=== PATIENT | male | born 1975 | race African-American/Black ===

== ENCOUNTER 2017-03-19 20:16 | Inpatient (IN) | payer MEDICAID ==
[~2017-03-19] VITALS: Ht 172.7 cm; Wt 75.8 kg
[2017-03-19 22:43] LABS: BASOPHIL % 0.3 % (0-2); PLATELET COUNT 223 x10^3mcL (130-400); RED CELL DISTRIBUTION WIDTH 13.4 % (11.5-14.5)
[2017-03-19 22:44] LABS: CALCIUM 9.2 mg/dL (8.5-10.1); CARBON DIOXIDE 29.2 mmol/L (21-32); CHLORIDE SERUM 103 mmol/L (98-107); CREATININE SERUM 1.3 mg/dL (0.7-1.3); GFR1 > 60 mL/min; GLUCOSE SERUM 88 mg/dL (74-106); SODIUM SERUM 138 mmol/L (136-145)
[2017-03-19 23:02] LABS: ALKALINE PHOSPHATASE 55 U/L (46-116); ALT/SGPT 66 U/L (16-63); AST/SGOT 40 U/L (15-37); BILIRUBIN TOTAL 0.34 mg/dL (0.20-1.00); LIPASE 133 IU/L (73-393); TOTAL PROTEIN, SERUM 7.5 g/dL (6.4-8.2)
[2017-03-20] MEDS ORDERED: HYDROCHLOROTHIA25 MG PO (00:29)
[2017-03-20] MEDS ORDERED: SIMVASTATIN20 M1 (00:30)
[2017-03-20 00:56] VITALS: BP 141/92
[2017-03-20 01:32] LABS: MAGNESIUM 1.8 mg/dL (1.8-2.4); PHOSPHOROUS 4.1 mg/dL (2.5-4.9)
[2017-03-20 01:52] LABS: CHOLESTEROL/HDL RATIO 4.9
[2017-03-20 03:52] LABS: microscopic required? NO
[2017-03-20 04:14] LABS: UA SPECIFIC GRAVITY 1.025 (1.005-1.035); urine erythrocyte NEGATIVE (NEGATIVE)
[2017-03-20 05:59] VITALS: BP 133/87
[2017-03-20 06:46] LABS: CALCIUM 8.9 mg/dL (8.5-10.1); CARBON DIOXIDE 28.3 mmol/L (21-32); CHLORIDE SERUM 106 mmol/L (98-107); CREATININE SERUM 1.3 mg/dL (0.7-1.3); GFR1 > 60 mL/min; GLUCOSE SERUM 80 mg/dL (74-106); POTASSIUM SERUM 3.6 mmol/L (3.5-5.1); SODIUM SERUM 142 mmol/L (136-145)
[2017-03-20 10:19] VITALS: BP 98/50
[2017-03-20 14:50] VITALS: BP 115/61
[2017-03-20 15:03] LABS: AMPHETAMINE QUAL UR NONE DETECTED (NEG <=1000)
[2017-03-20 21:37] VITALS: BP 115/59
[2017-03-21 06:11] VITALS: BP 109/55
[2017-03-21 06:51] LABS: BASOPHIL % 0.3 % (0-2); PLATELET COUNT 187 x10^3mcL (130-400); RED CELL DISTRIBUTION WIDTH 13.1 % (11.5-14.5)
[2017-03-21 08:44] VITALS: BP 111/55
[2017-03-21] MEDS ORDERED: CYCLOBENZAPRINE5 MG PO (09:47)
[2017-03-21] MEDS ORDERED: MOT400 PO (09:48)
[2017-03-21] MEDS ORDERED: MAG PO (09:49)
[2017-03-21] MEDS ORDERED: PRI20 PO (09:50)
[2017-03-21 11:53] VITALS: BP 111/55
== END 2017-03-21 12:29 | disposition home or self-care (01) | DRG 243 ==
LOC: ED 20:16 → DU 03-20 00:22
PROVIDERS: Emergency Medicine; ADMIT Family Medicine
DX: K21.9 Gastro-esophageal reflux disease without esophagitis (principal); I10 Essential (primary) hypertension; E78.5 Hyperlipidemia, unspecified; R74.0 Nonspecific elevation of levels of transaminase and lactic acid dehydrogenase [LDH]; M54.12 Radiculopathy, cervical region; Z68.25 Body mass index [BMI] 25.0-25.9, adult; F17.210 Nicotine dependence, cigarettes, uncomplicated
CPT/HCPCS: 99406; J7030; Q0092

== ENCOUNTER 2017-05-29 21:39 | Emergency (ER) | payer OTHER ==
[~2017-05-29] VITALS: Ht 170.2 cm; Wt 82.1 kg
[~2017-05-29 21:39] MED LIST: CYCLOBENZAPRINE5 MG PO; HYDROCHLOROTHIA25 MG PO; MAG PO; MOT400 PO; PRI20 PO; SIMVASTATIN20 M1
[2017-05-29 22:08] VITALS: Ht 170.2 cm; Wt 82.1 kg
[2017-05-30 01:46] VITALS: BP 135/84
== END 2017-05-30 01:46 | disposition home or self-care (01) ==
LOC: ED 21:39
DX: J11.1 Influenza due to unidentified influenza virus with other respiratory manifestations (principal); J18.9 Pneumonia, unspecified organism; F17.200 Nicotine dependence, unspecified, uncomplicated; I10 Essential (primary) hypertension; E11.9 Type 2 diabetes mellitus without complications; Z71.6 Tobacco abuse counseling
CPT/HCPCS: 99406

== ENCOUNTER 2017-12-21 09:33 | Emergency (ER) | payer OTHER ==
[~2017-12-21] VITALS: Ht 170.2 cm; Wt 77.7 kg
[2017-12-21 12:22] LABS: microscopic required? NO
[2017-12-21 13:01] LABS: UA SPECIFIC GRAVITY 1.025 (1.005-1.035); urine erythrocyte NEGATIVE (NEGATIVE)
[2017-12-21 13:24] LABS: BASOPHIL % 0.6 % (0-2); PLATELET COUNT 220 x10^3mcL (130-400); RED CELL DISTRIBUTION WIDTH 13.2 % (11.5-14.5)
[2017-12-21 14:02] LABS: CALCIUM 9.9 mg/dL (8.5-10.1); CARBON DIOXIDE 25.6 mmol/L (21-32); CHLORIDE SERUM 104 mmol/L (98-107); CREATININE SERUM 1.2 mg/dL (0.7-1.3); GFR1 > 60 mL/min; GLUCOSE SERUM 93 mg/dL (74-106); SODIUM SERUM 136 mmol/L (136-145)
[2017-12-21 14:06] LABS: ALKALINE PHOSPHATASE 71 U/L (46-116); ALT/SGPT 50 U/L (16-63); AMYLASE 65 U/L (25-115); AST/SGOT 22 U/L (15-37); BILIRUBIN TOTAL 0.39 mg/dL (0.20-1.00); LIPASE 123 IU/L (73-393); TOTAL PROTEIN, SERUM 7.3 g/dL (6.4-8.2)
[2017-12-21 14:26] LABS: AMPHETAMINE QUAL UR NONE DETECTED (See below)
[2017-12-21 14:37] VITALS: BP 139/73
== END 2017-12-21 14:37 | disposition home or self-care (01) ==
LOC: ED 09:33
PROVIDERS: Specialist
DX: R10.12 Left upper quadrant pain (principal); R19.7 Diarrhea, unspecified; I10 Essential (primary) hypertension
CPT/HCPCS: 36415

== ENCOUNTER 2019-02-02 18:28 | Emergency (ER) | payer OTHER ==
[~2019-02-02] VITALS: Ht 175.3 cm; Wt 77.1 kg
[2019-02-02 18:34] VITALS: Ht 175.3 cm; Wt 77.1 kg
[2019-02-02 18:53] VITALS: BP 160/88
[2019-02-02 18:56] LABS: BASOPHIL % 0.5 % (0-2); PLATELET COUNT 269 x10^3mcL (130-400); RED CELL DISTRIBUTION WIDTH 13.3 % (11.5-14.5)
[2019-02-02 19:00] LABS: CALCIUM 7.6 mg/dL (8.5-10.1); CARBON DIOXIDE 29.3 mmol/L (21-32); CHLORIDE SERUM 108 mmol/L (98-107); CREATININE SERUM 0.8 mg/dL (0.7-1.3); GFR1 > 60 mL/min; GLUCOSE SERUM 107 mg/dL (74-106); POTASSIUM SERUM 3.5 mmol/L (3.5-5.1); SODIUM SERUM 148 mmol/L (136-145)
[2019-02-02 19:06] LABS: ALBUMIN 3.5 g/dL (3.4-5.0); ALKALINE PHOSPHATASE 69 U/L (46-116); ALT/SGPT 62 U/L (16-63); AST/SGOT 50 U/L (15-37); BILIRUBIN TOTAL 0.3 mg/dL (0.20-1.00); CHOLESTEROL 187 mg/dL (<200); TOTAL PROTEIN, SERUM 6.6 g/dL (6.4-8.2)
[2019-02-02 19:26] LABS: AMPHETAMINE QUAL UR NONE DETECTED (See below)
== END 2019-02-02 19:42 | disposition left against medical advice (07) ==
LOC: ED 18:28
PROVIDERS: Specialist
DX: F10.129 Alcohol abuse with intoxication, unspecified (principal); I10 Essential (primary) hypertension; Y90.8 Blood alcohol level of 240 mg/100 ml or more
CPT/HCPCS: 36415; G0480; J7030

== ENCOUNTER 2019-05-15 12:05 | Inpatient (IN) | payer OTHER ==
[2019-05-15] VITALS (9 sets, daily range): BP systolic 135–193; BP diastolic 79–106
[~2019-05-15] VITALS: Ht 180.3 cm; Wt 80.1 kg
[2019-05-15 12:52] LABS: UA SPECIFIC GRAVITY 1.025 (1.005-1.035); microscopic required? YES; urine erythrocyte 2+ (NEGATIVE)
[2019-05-15 12:56] LABS: BASOPHIL % 0.2 % (0-2); PLATELET COUNT 178 x10^3mcL (130-400); RED CELL DISTRIBUTION WIDTH 14.5 % (11.5-14.5)
[2019-05-15 14:48] LABS: ALBUMIN 4.2 g/dL (3.4-5.0); ALKALINE PHOSPHATASE 110 U/L (46-116); ALT/SGPT 72 U/L (16-63); BILIRUBIN TOTAL 0.36 mg/dL (0.20-1.00); CALCIUM 9.4 mg/dL (8.5-10.1); CHLORIDE SERUM 100 mmol/L (98-107); CREATININE SERUM 2.5 mg/dL (0.7-1.3); GFR1 30 mL/min; GLUCOSE SERUM 229 mg/dL (74-106); TOTAL PROTEIN, SERUM 7.9 g/dL (6.4-8.2)
[2019-05-15 14:49] LABS: AST/SGOT 105 U/L (15-37); SODIUM SERUM 137 mmol/L (136-145)
[2019-05-15 14:55] LABS: POTASSIUM SERUM 6.5 mmol/L (3.5-5.1)
[2019-05-15 15:19] LABS: AMPHETAMINE QUAL UR NONE DETECTED (See below)
[2019-05-15 15:51] LABS: CARBON DIOXIDE 5.5 mmol/L (21-32)
[2019-05-15] MEDS ORDERED: HYDROCHLOROTH12.5 M2 PO (16:37)
[2019-05-15 16:58] LABS: CHOLESTEROL/HDL RATIO 2.9
[2019-05-15 20:05] LABS: BILIRUBIN TOTAL 0.43 mg/dL (0.20-1.00); CALCIUM 9.4 mg/dL (8.5-10.1)
[2019-05-15 20:14] LABS: ALBUMIN 2.9 g/dL (3.4-5.0); CARBON DIOXIDE 7.1 mmol/L (21-32); POTASSIUM SERUM 7.1 mmol/L (3.5-5.1)
[2019-05-15 23:17] LABS: CALCIUM 8.5 mg/dL (8.5-10.1); CARBON DIOXIDE 22.4 mmol/L (21-32); CREATININE SERUM 2.3 mg/dL (0.7-1.3); POTASSIUM SERUM 3.1 mmol/L (3.5-5.1)
[2019-05-16] VITALS (17 sets, daily range): BP systolic 85–166; BP diastolic 56–97; Ht 180.3 cm; Wt 80.1 kg
[2019-05-16 00:43] LABS: ALBUMIN 3.6 g/dL (3.4-5.0); CALCIUM 8.8 mg/dL (8.5-10.1); CARBON DIOXIDE 20.3 mmol/L (21-32); CREATININE SERUM 2.9 mg/dL (0.7-1.3); POTASSIUM SERUM 3.4 mmol/L (3.5-5.1)
[2019-05-16 00:53] LABS: TOTAL PROTEIN, SERUM 6.1 g/dL (6.4-8.2)
[2019-05-16 05:26] LABS: BILIRUBIN TOTAL 0.77 mg/dL (0.20-1.00); CARBON DIOXIDE 19.4 mmol/L (21-32); CREATININE SERUM 3.8 mg/dL (0.7-1.3); POTASSIUM SERUM 3.1 mmol/L (3.5-5.1)
[2019-05-16 05:28] LABS: ALBUMIN 3.2 g/dL (3.4-5.0); TOTAL PROTEIN, SERUM 5.8 g/dL (6.4-8.2)
[2019-05-16 06:43] LABS: RED CELL DISTRIBUTION WIDTH 14.1 % (11.5-14.5)
[2019-05-16 06:52] LABS: BASOPHIL % 0 % (0-2); PLATELET COUNT 87 x10^3mcL (130-400)
[2019-05-16 08:32] LABS: BILIRUBIN TOTAL 0.7 mg/dL (0.20-1.00); CALCIUM 8.6 mg/dL (8.5-10.1); CARBON DIOXIDE 18.5 mmol/L (21-32); POTASSIUM SERUM 3.2 mmol/L (3.5-5.1)
[2019-05-16 08:35] LABS: ALBUMIN 3.1 g/dL (3.4-5.0); CREATININE SERUM 4.7 mg/dL (0.7-1.3); TOTAL PROTEIN, SERUM 5.7 g/dL (6.4-8.2)
[2019-05-16 09:20] LABS: MAGNESIUM 1.7 mg/dL (1.8-2.4); PHOSPHOROUS 4.6 mg/dL (2.5-4.9)
[2019-05-16 12:27] LABS: BILIRUBIN TOTAL 0.53 mg/dL (0.20-1.00); CALCIUM 8.6 mg/dL (8.5-10.1); CARBON DIOXIDE 18.5 mmol/L (21-32); POTASSIUM SERUM 3.1 mmol/L (3.5-5.1)
[2019-05-16 12:33] LABS: ALBUMIN 2.9 g/dL (3.4-5.0); CREATININE SERUM 5.6 mg/dL (0.7-1.3); TOTAL PROTEIN, SERUM 5.5 g/dL (6.4-8.2)
[2019-05-16 18:28] LABS: BILIRUBIN TOTAL 0.61 mg/dL (0.20-1.00); CALCIUM 7.6 mg/dL (8.5-10.1); CARBON DIOXIDE 29.7 mmol/L (21-32); CREATININE SERUM 3.5 mg/dL (0.7-1.3)
[2019-05-16 18:29] LABS: ALBUMIN 2.8 g/dL (3.4-5.0); TOTAL PROTEIN, SERUM 5.4 g/dL (6.4-8.2)
[2019-05-16 18:30] LABS: POTASSIUM SERUM 2.9 mmol/L (3.5-5.1)
[2019-05-17] VITALS (16 sets, daily range): BP systolic 89–193; BP diastolic 46–106
[2019-05-17 01:03] LABS: BILIRUBIN TOTAL 0.5 mg/dL (0.20-1.00); CALCIUM 7.6 mg/dL (8.5-10.1); CARBON DIOXIDE 25.5 mmol/L (21-32); POTASSIUM SERUM 4.3 mmol/L (3.5-5.1)
[2019-05-17 01:04] LABS: ALBUMIN 2.5 g/dL (3.4-5.0); TOTAL PROTEIN, SERUM 4.9 g/dL (6.4-8.2)
[2019-05-17 05:14] LABS: RED CELL DISTRIBUTION WIDTH 14.1 % (11.5-14.5)
[2019-05-17 05:25] LABS: BASOPHIL % 0 % (0-2); PLATELET COUNT 65 x10^3mcL (130-400)
[2019-05-17 05:26] LABS: BILIRUBIN TOTAL 0.47 mg/dL (0.20-1.00); CALCIUM 7.6 mg/dL (8.5-10.1); CARBON DIOXIDE 23.2 mmol/L (21-32); POTASSIUM SERUM 3.5 mmol/L (3.5-5.1)
[2019-05-17 05:30] LABS: ALBUMIN 2.4 g/dL (3.4-5.0); CREATININE SERUM 5.5 mg/dL (0.7-1.3); TOTAL PROTEIN, SERUM 4.6 g/dL (6.4-8.2)
[2019-05-17 06:52] LABS: PHOSPHOROUS 5.4 mg/dL (2.5-4.9)
[2019-05-17 06:57] LABS: ALBUMIN 2.4 g/dL (3.4-5.0)
[2019-05-17 08:41] LABS: BILIRUBIN TOTAL 0.52 mg/dL (0.20-1.00); CALCIUM 8.3 mg/dL (8.5-10.1); CARBON DIOXIDE 22.8 mmol/L (21-32); POTASSIUM SERUM 4.1 mmol/L (3.5-5.1)
[2019-05-17 08:48] LABS: ALBUMIN 2.8 g/dL (3.4-5.0); TOTAL PROTEIN, SERUM 5.5 g/dL (6.4-8.2)
[2019-05-17 13:54] LABS: BILIRUBIN TOTAL 0.4 mg/dL (0.20-1.00); CARBON DIOXIDE 29.2 mmol/L (21-32); POTASSIUM SERUM 4.1 mmol/L (3.5-5.1)
[2019-05-17 14:07] LABS: ALBUMIN 2.4 g/dL (3.4-5.0); CREATININE SERUM 4.7 mg/dL (0.7-1.3); TOTAL PROTEIN, SERUM 5.1 g/dL (6.4-8.2)
[2019-05-17 17:06] LABS: BILIRUBIN TOTAL 0.5 mg/dL (0.20-1.00); CARBON DIOXIDE 28.4 mmol/L (21-32); CREATININE SERUM 3.9 mg/dL (0.7-1.3); POTASSIUM SERUM 3.7 mmol/L (3.5-5.1)
[2019-05-17 17:11] LABS: ALBUMIN 2.6 g/dL (3.4-5.0); TOTAL PROTEIN, SERUM 5.4 g/dL (6.4-8.2)
[2019-05-17 20:21] LABS: BILIRUBIN TOTAL 0.45 mg/dL (0.20-1.00); CALCIUM 8.2 mg/dL (8.5-10.1); CARBON DIOXIDE 29.8 mmol/L (21-32); POTASSIUM SERUM 3.4 mmol/L (3.5-5.1)
[2019-05-17 20:31] LABS: ALBUMIN 2.3 g/dL (3.4-5.0); CREATININE SERUM 4.8 mg/dL (0.7-1.3); TOTAL PROTEIN, SERUM 4.9 g/dL (6.4-8.2)
[2019-05-18] VITALS (17 sets, daily range): BP systolic 123–179; BP diastolic 74–106
[2019-05-18 01:44] LABS: BILIRUBIN TOTAL 0.5 mg/dL (0.20-1.00); CARBON DIOXIDE 30.7 mmol/L (21-32); POTASSIUM SERUM 3.5 mmol/L (3.5-5.1)
[2019-05-18 01:50] LABS: ALBUMIN 2.3 g/dL (3.4-5.0); TOTAL PROTEIN, SERUM 4.8 g/dL (6.4-8.2)
[2019-05-18 01:51] LABS: CREATININE SERUM 4.8 mg/dL (0.7-1.3)
[2019-05-18 01:54] LABS: CALCIUM 8.1 mg/dL (8.5-10.1)
[2019-05-18 06:15] LABS: BILIRUBIN TOTAL 0.43 mg/dL (0.20-1.00); CALCIUM 9.1 mg/dL (8.5-10.1); CARBON DIOXIDE 26.2 mmol/L (21-32); PHOSPHOROUS 4.3 mg/dL (2.5-4.9); POTASSIUM SERUM 3.4 mmol/L (3.5-5.1)
[2019-05-18 06:29] LABS: ALBUMIN 2.5 g/dL (3.4-5.0); BASOPHIL % 0 % (0-2); PLATELET COUNT 77 x10^3mcL (130-400); RED CELL DISTRIBUTION WIDTH 15.1 % (11.5-14.5); TOTAL PROTEIN, SERUM 5.4 g/dL (6.4-8.2)
[2019-05-18 06:30] LABS: CREATININE SERUM 6.2 mg/dL (0.7-1.3)
[2019-05-18 08:50] LABS: ALBUMIN 2.3 g/dL (3.4-5.0); BILIRUBIN TOTAL 0.4 mg/dL (0.20-1.00); CALCIUM 9.3 mg/dL (8.5-10.1); CREATININE SERUM 6.5 mg/dL (0.7-1.3); POTASSIUM SERUM 3.5 mmol/L (3.5-5.1); TOTAL PROTEIN, SERUM 5.1 g/dL (6.4-8.2)
[2019-05-18 12:47] LABS: BILIRUBIN TOTAL 0.45 mg/dL (0.20-1.00); CALCIUM 8.8 mg/dL (8.5-10.1); CARBON DIOXIDE 29.3 mmol/L (21-32); POTASSIUM SERUM 3.5 mmol/L (3.5-5.1)
[2019-05-18 12:48] LABS: ALBUMIN 2.3 g/dL (3.4-5.0); CREATININE SERUM 4.7 mg/dL (0.7-1.3); TOTAL PROTEIN, SERUM 5.2 g/dL (6.4-8.2)
== END 2019-05-18 22:08 | disposition short-term general hospital (02) | DRG 720 ==
LOC: ED 12:05 → IC 16:25
PROVIDERS: Emergency Medicine; Internal Medicine; ADMIT Internal Medicine
PROC: 5A1945Z Respiratory Ventilation, 24-96 Consecutive Hours (ICD-10-PCS; principal; 2019-05-15)
PROC: 0BH17EZ Insertion of Endotracheal Airway into Trachea, Via Natural or Artificial Opening (ICD-10-PCS; 2019-05-15)
PROC: 02HV33Z Insertion of Infusion Device into Superior Vena Cava, Percutaneous Approach (ICD-10-PCS; 2019-05-15)
PROC: B548ZZA Ultrasonography of Superior Vena Cava, Guidance (ICD-10-PCS; 2019-05-15)
PROC: 0D9670Z Drainage of Stomach with Drainage Device, Via Natural or Artificial Opening (ICD-10-PCS; 2019-05-15)
PROC: 05HY33Z Insertion of Infusion Device into Upper Vein, Percutaneous Approach (ICD-10-PCS; 2019-05-15)
PROC: 5A1D70Z Performance of Urinary Filtration, Intermittent, Less than 6 Hours Per Day (ICD-10-PCS; 2019-05-15)
PROC: 5A1D70Z Performance of Urinary Filtration, Intermittent, Less than 6 Hours Per Day (ICD-10-PCS; 2019-05-16)
PROC: 5A1D70Z Performance of Urinary Filtration, Intermittent, Less than 6 Hours Per Day (ICD-10-PCS; 2019-05-17)
PROC: 5A1D70Z Performance of Urinary Filtration, Intermittent, Less than 6 Hours Per Day (ICD-10-PCS; 2019-05-18)
DX: A41.9 Sepsis, unspecified organism (principal); N17.0 Acute kidney failure with tubular necrosis; J96.02 Acute respiratory failure with hypercapnia; J96.01 Acute respiratory failure with hypoxia; G93.41 Metabolic encephalopathy; E46 Unspecified protein-calorie malnutrition; E87.2 Acidosis; D69.6 Thrombocytopenia, unspecified; N12 Tubulo-interstitial nephritis, not specified as acute or chronic; F17.210 Nicotine dependence, cigarettes, uncomplicated; E87.5 Hyperkalemia; E78.5 Hyperlipidemia, unspecified; F10.10 Alcohol abuse, uncomplicated; I11.9 Hypertensive heart disease without heart failure; Z68.21 Body mass index [BMI] 21.0-21.9, adult; Z79.899 Other long term (current) drug therapy
CPT/HCPCS: 36600; 82693; 82962; 83880; 90658; A4628; C9113; G0378; G0480; J0295; J0360; J0692; J0696; J1451; J1642; J1644; J1953; J2060; J2250; J2405; J2704; J2765; J3010; J3370; J3475; J3480; J3490; J7030; J7040; J7620; P9047; Q0092